=== PATIENT | male | born 1960 | race Caucasian/White ===

== ENCOUNTER 2017-05-05 21:44 | Inpatient (IN) | payer MEDICARE, OTHER ==
[~2017-05-05] VITALS: Ht 188 cm; Wt 120.2 kg
--- NOTE | 2017-05-05 21:55 | ED.ADGEN ---
Past History Past Medical History: COPD, Depression, Diabetes, Other Past Surgical History: Other Adult General Chief Complaint Chief Complaint " I just want to ... just want to go see the Lord.. " " I was talking to [facility] on the phone.. and I guess they called the [facility] HPI HPI Patient is a 56 year old male who presents with above hx and complaints of depression with suicidal ideation. Pt. has long history of depression and alcohol abuse. Patient has previous diagnosis of posttraumatic stress disorder with cyclic depression. . Patient normally follows at CT for all his care. Patient diverted from CT transfer to [place] for evaluation. Patient denies any ingestion of excessive amount of meds or illicit drugs. Patient does not currently give a specific plan if he decides act on his suicidal impulses. Patient has been hospitalized for depression in the past, but has never attempted suicide in the past. Pt. has hx of ETOH withdrawal and DTs when he has previously stopped ETOH. Pt. states he has not had any ETOH for past week. Pt. does follow at [facility] for counseling sessions. Pt. has past Hx. of PTSD, Anxiety,and chronic pain. Pt. has no family locally and lives alone. Pt. expressed he was having recurrent thoughts of suicide and fears he would act on them. Pt. requesting transfer to [place] if they come off diversion. Review of Systems Review of Systems Patient has complaints of depression Constitutional: Denies fever or chills [] Eyes: Denies change in visual acuity, redness, or eye pain [] HENT: Denies nasal congestion or sore throat [] Respiratory: Denies cough or shortness of breath [] Cardiovascular: No additional information not addressed in HPI [] GI: Denies abdominal pain, nausea, vomiting, bloody stools or diarrhea [] : Denies dysuria or hematuria [] Musculoskeletal: Chronic back pain or joint pain []. Chronic pain Integument: Denies rash or skin lesions [] Neurologic: Denies headache, focal weakness or sensory changes [] Endocrine: Denies polyuria or polydipsia [] All other systems were reviewed and found to be within normal limits, except as documented in this note. Family History Family History Noncontributory Current Medications Current Medications Current Medications Medications (Trade) Dose Ordered Sig/[place] Start Time Stop Time Status Last Admin Dose Admin Info (Do NOT chart on this entry -- for MONITORING) 1 each PRN DAILY PRN 05/06/17 03:00 05/06/17 13:53 DC Iohexol (Omnipaque 300 Mg/ml) 75 ml 1X ONCE 05/06/17 02:45 05/06/17 02:46 DC Lorazepam (Ativan) 2 mg 1X PRN PRN 05/06/17 03:30 05/06/17 13:53 DC Magnesium Hydroxide (Milk Of Magnesia) 2,400 mg 1X ONCE 05/06/17 00:30 05/06/17 00:31 DC 05/06/17 00:30 2,400 MG Multivitamins/ Minerals 10 ml/ Folic Acid 1 mg/ Thiamine HCl 100 mg/Dextrose/ Lactated Ringer's 1,011.2 ml @ 0 mls/hr 1X ONCE 05/06/17 03:30 05/06/17 03:37 DC Multivitamins/ Minerals 10 ml/ Folic Acid 1 mg/ Thiamine HCl 100 mg/Sodium Chloride 1,011.2 ml @ 1,000 mls/ hr Q1H 05/05/17 23:00 05/05/17 23:04 DC 05/05/17 22:45 1,000 MLS/HR Ondansetron HCl (Zofran) 4 mg PRN Q4HRS PRN 05/06/17 03:30 05/06/17 13:53 DC Allergies Allergies Allergies Coded Allergies Type Severity Reaction Last Updated Verified No Known Drug Allergies 05/05/17 No Physical Exam Physical Exam Constitutional: Moderately acute emotional distress, non-toxic appearance. Pt. does not appear intoxicated. HENT: Normocephalic, atraumatic, bilateral external ears normal, oropharynx moist, no oral exudates, nose normal. [] Eyes: PERRLA, EOMI, conjunctiva normal, no discharge. [] Neck: Normal range of motion, no tenderness, supple, no stridor. [] Cardiovascular:Heart rate regular rhythm, no murmur [] Lungs & Thorax: Bilateral breath sounds equal apex with few scattered wheezes on auscultation [] Abdomen: Bowel sounds normal, soft, no tenderness, no masses, no pulsatile masses. Obese. Skin: Warm, dry, no erythema, no rash. [] Back: No tenderness, no CVA tenderness. [] Old surgery scar. Extremities: No tenderness, no cyanosis, no clubbing, ROM intact, no edema. [] Veinous stasis. Neurologic: Alert and oriented X 3, No gross motor , and sensory function deficits from baseline, no gross focal deficits noted from baseline. Does walk with limp. Sciatica complaints from straight leg lift -bilaterally. ( Chronic per pt.) No flap. DTR's + 2 patella and brachial. Psychologic: Affect flat, judgement poor insight,, mood depressed Current Patient Data Vital Signs Vital Signs Date Time Temp Pulse Resp B/P (MAP) Pulse Ox O2 Delivery O2 Flow Rate FiO2 05/05/17 21:44 79 16 97 Room Air Lab Results Laboratory Tests Test 05/05/17 00:01 05/05/17 22:10 05/06/17 00:01 Urine Collection Type Unknown Urine Color Yellow Urine Clarity Hazy Urine pH 6.0 Urine Specific Louise >=1.030 Urine Protein Neg (NEG-TRACE) Urine Glucose (UA) 250 mg/dL (NEG) Urine Ketones (Stick) Neg mg/dL (NEG) Urine Blood Neg (NEG) Urine Nitrite Neg (NEG) Urine Bilirubin Neg (NEG) Urine Urobilinogen Dipstick 0.2 mg/dL (0.2 mg/dL) Urine Leukocyte Esterase Neg (NEG) Urine RBC Occ /HPF (0-2) Urine WBC Occ /HPF (0-4) Urine Squamous Epithelial Cells Few /LPF Urine Bacteria Few /HPF (0-FEW) Urine Mucus Slight /LPF Urine Opiates Screen Neg (NEG) Urine Methadone Screen Neg (NEG) Urine Barbiturates Neg (NEG) Urine Phencyclidine Screen Neg (NEG) Urine Amphetamine/Methamphetamine Neg (NEG) Urine Benzodiazepines Screen Neg (NEG) Urine Cocaine Screen Neg (NEG) Urine Cannabinoids Screen Neg (NEG) Urine Ethyl Alcohol Neg (NEG) White Blood Count 3.5 x10^3/uL (4.0-11.0) L Red Blood Count 4.29 x10^6/uL (4.30-5.70) L Hemoglobin 14.3 g/dL (13.0-17.5) Hematocrit 41.6 % (39.0-53.0) Mean Corpuscular Volume 97 fL (79-100) Mean Corpuscular Hemoglobin 33 pg (25-35) Mean Corpuscular Hemoglobin Concent 35 g/dL (31-37) Red Cell Distribution Width 16.6 % (11.5-14.5) H Platelet Count 102 x10^3/uL (140-400) L Neutrophils (%) (Auto) 67 % (31-73) Lymphocytes (%) (Auto) 19 % (24-48) L Monocytes (%) (Auto) 12 % (0-9) H Eosinophils (%) (Auto) 1 % (0-3) Basophils (%) (Auto) 0 % (0-3) Neutrophils # (Auto) 2.4 x10^3uL (1.8-7.7) Lymphocytes # (Auto) 0.7 x10^3/uL (1.0-4.8) L Monocytes # (Auto) 0.4 x10^3/uL (0.0-1.1) Eosinophils # (Auto) 0.0 x10^3/uL (0.0-0.7) Basophils # (Auto) 0.0 x10^3/uL (0.0-0.2) Erythrocyte Sedimentation Rate 23 (0-15) H Prothrombin Time 11.9 SEC (9.4-11.4) H Prothrombin Time INR 1.2 (0.9-1.1) H PTT 26 SEC (23-33) Sodium Level 137 mmol/L (136-145) Potassium Level 3.9 mmol/L (3.5-5.1) Chloride Level 100 mmol/L (98-107) Carbon Dioxide Level 26 mmol/L (21-32) Anion Gap 11 (6-14) Blood Urea Nitrogen 16 mg/dL (8-26) Creatinine 0.8 mg/dL (0.7-1.3) Estimated GFR (Cockcroft-Gault) 99.3 Glucose Level 225 mg/dL (70-99) H Calcium Level 9.5 mg/dL (8.5-10.1) Magnesium Level 1.6 mg/dL (1.8-2.4) L Total Bilirubin 0.6 mg/dL (0.2-1.0) Direct Bilirubin 0.2 mg/dL (0.0-0.2) Aspartate Amino Transferase (AST) 32 U/L (15-37) Alanine Aminotransferase (ALT) 35 U/L (16-63) Alkaline Phosphatase 92 U/L (46-116) Total Protein 8.1 g/dL (6.4-8.2) Albumin 4.1 g/dL (3.4-5.0) Salicylates Level 0.2 mg/dL (2.8-20.0) L Salicylate Last Dose Date Unknown Salicylate Last Dose Time Unknown Acetaminophen Level < 2.0 mcg/mL (10-30) L Acetaminophen Last Dose Date Unknown Acetaminophen Last Dose Time Unknown Ethyl Alcohol Level < 10 mg/dL (0-10) Rapid Plasma Reagin Non reactive (Non Reactive) QO-Soi-M-Type Natriuretic Peptide 14 pg/mL (0-124) EKG EKG My interpretation of EKG shows sinus rhythm at 84 bpm. There is a slightly prolonged QT interval. But no findings acute STEMI of contralateral changes.[] Radiology/Procedures Radiology/Procedures Chest Xray shows[]chronic changes, some calcified cyst or mass mid sternal area. No free air under abd. CT pending at time of admission. Course & Med Decision Making Course & Med Decision Making Pertinent Labs and Imaging studies reviewed. (See chart for details) See Tele Psych. for SI evaluation by Dr. Vidal Fajardo. Pt. to be admitted 24 for possible ETOH withdrawal. Discussed presentation, testing and tx plan with Dr. Etienne. Pt. will continue be a ED hold because of lack of staffing in [facility]. Discussed presentation, testing and tx. plan with Dr. Etienne. - Admit for observation and tx of possible DT per Tele psych. Possible transfer to CT when off diversion per pt. request. [] Final Impression Final Impression 1. Suicidal ideation 2. Depression 3. History of PTSD[] 4. Chronic Back Pain 5. DM- Elevated Glucose 6. COPD Hx. 7. Lung Mass/Scar-/ Cyst- ( Hx per pt. present since 80's and followed at [place]) 8. Hx of ETOH abuse 9. Past Hx of ETOH withdrawal seizures and DT's 10.Hx of Anxiety 11.Low Magnesium levels -1.6 12. Thrombocytopenia -102 Problems: Dragon Disclaimer Dragon Disclaimer This electronic medical record was generated, in whole or in part, using a voice recognition dictation system. NAT CORREA MD May 05, 2017 21:55
[2017-05-05 22:29] LABS: BASO % 0 % (0-3); EOS % 1 % (0-3); HEMATOCRIT 41.6 % (39.0-53.0); HEMOGLOBIN 14.3 g/dL (13.0-17.5); LYMPH # 0.7 x10^3/uL (1.0-4.8); LYMPH % 19 % (24-48); MEAN CORPUSCULAR HEMOGLOBIN 33 pg (25-35); MEAN CORPUSCULAR HGB CONC 35 g/dL (31-37); MEAN CORPUSCULAR VOLUME 97 fL (79-100); MONO # 0.4 x10^3/uL (0.0-1.1); MONO % 12 % (0-9); NEUT # 2.4 x10^3uL (1.8-7.7); NEUT % 67 % (31-73); PLATELET COUNT 102 x10^3/uL (140-400); RED BLOOD COUNT 4.29 x10^6/uL (4.30-5.70); RED CELL DISTRIBUTION WIDTH 16.6 % (11.5-14.5); WHITE BLOOD COUNT 3.5 x10^3/uL (4.0-11.0)
[2017-05-05 22:45] LABS: ACETAMIN < 2.0 mcg/mL (10-30); ALBUMIN 4.1 g/dL (3.4-5.0); CALCIUM 9.5 mg/dL (8.5-10.1); CREATININE 0.8 mg/dL (0.7-1.3); DIRECT BILIRUBIN 0.2 mg/dL (0.0-0.2); ETHANOL < 10 mg/dL (0-10); GFR 99.3; MAGNESIUM 1.6 mg/dL (1.8-2.4); POTASSIUM 3.9 mmol/L (3.5-5.1); SALIC 0.2 mg/dL (2.8-20.0); TOTAL BILIRUBIN 0.6 mg/dL (0.2-1.0); TOTAL PROTEIN 8.1 g/dL (6.4-8.2)
[2017-05-05] MEDS ORDERED: MVI, ADULT NO.4 WITH VIT K 10 ML, FOLIC ACID SYRINGE for ER 1 MG, THIAMINE 100 MG in IV... IV SCH ×4 (23:00)
[2017-05-05 23:40] LABS: SEDIMENTATION RATE 23 (0-15)
[2017-05-06] MEDS ORDERED: MAGNESIUM HYDROXIDE 2,400 MG/30 ML ORAL.SUSP. PO ONE (00:30)
[2017-05-06 00:51] LABS: BILIRUBIN,URINE NEG (NEG); CLARITY,URINE HAZY; COLOR,URINE YELLOW; GLUCOSE,URINE 250 mg/dL (NEG); NITRITE,URINE NEG (NEG); RBC,URINE OCC /HPF (0-2); UROBILINOGEN,URINE 0.2 mg/dL (0.2 mg/dL); WBC,URINE OCC /HPF (0-4)
[2017-05-06 00:52] LABS: BACTERIA,URINE FEW /HPF (0-FEW); SQUAMOUS EPITHELIAL CELL,UR FEW /LPF
[2017-05-06 00:53] LABS: BARBITURATES NEG (NEG); BENZODIAZEPINES NEG (NEG); CANNABINOIDS NEG (NEG); COCAINE NEG (NEG); METHADONE NEG (NEG); OPIATES NEG (NEG); PHENCYCLIDINE NEG (NEG)
[2017-05-06 00:56] LABS: AMPHETAMINE/METHAMPHETAMINE NEG (NEG)
--- NOTE | 2017-05-06 02:37 | EKG ---
[address] [address] Test Date: 2017-05-05 Test Time: 22:24:00 Pat Name: HANSA HWANG Department: Room: Gender: M Director Of Product Development: : 1960 Requested By: NAT CORREA Order Number: [id number] Reading MD: Measurements Intervals [place] Rate: 84 P: 23 SC: 160 QRS: 39 QRSD: 94 T: 46 QT: 422 QTc: 502 Interpretive Statements SINUS ARRHYTHMIA PROLONGED QT NO SPECIFIC ECG ABNORMALITIES RI6.01 No previous ECG available for comparison
[2017-05-06] MEDS ORDERED: IOHEXOL 300 MG/ML 75 ML VIAL. IV ONE (02:45)
[2017-05-06] MEDS ORDERED: CONTRAST GIVEN MC PRN (03:00)
[2017-05-06] MEDS ORDERED: MVI, ADULT NO.4 WITH VIT K 10 ML, FOLIC ACID 1 MG, THIAMINE 100 MG in IV DEXTROSE 5%-LA... IV ONE ×4 (03:30)
[2017-05-06] MEDS ORDERED: LORazepam 1 MG TABLET PO ONE ×2 (03:30→03:45)
[2017-05-06] MEDS ORDERED: LORazepam 2 MG/ML VIAL IV PRN (03:30)
[2017-05-06] MEDS ORDERED: ONDANSETRON PF 4 MG/2 ML VIAL. IV PRN (03:30)
--- NOTE | 2017-05-06 04:50 | RAD ---
PQRS Compliance Statement: One or more of the following individualized dose reduction techniques were utilized for this examination: 1. Automated exposure control 2. Adjustment of the mA and/or kV according to patient size 3. Use of iterative reconstruction technique CT CHEST WO CONTRAST Clinical Indication: Dyspnea, hx abnormal chest xray. Pt states he has a growth on sternum Comparison: AP chest, prior day. TECHNIQUE: Helical CT imaging of the chest is performed without IV contrast. Findings: Thyroid is symmetric. Moderate bilateral gynecomastia. There are subcentimeter mediastinal lymph nodes. There is a rim calcified cyst along the pericardium the anterior mediastinum left of midline that measures 4.7 cm AP by 4.9 cm transverse by 5.7 cm craniocaudal. Great vessels are normal caliber. There is severe three-vessel coronary artery disease. Cardiac size normal. Mild mitral annular calcification. No pericardial effusion. No pleural effusion. The central airways are patent. There are peripheral reticular opacities in the bilateral lungs. Finding may be chronic. No lung consolidation. TIPS is partially seen in the liver. Vascular coils are seen in the central upper abdomen, incompletely imaged. Spleen may be enlarged but is incompletely imaged. No compression fracture in the thoracic spine. IMPRESSION: 1. Rim calcified cyst along the pericardium in the left anterior mediastinum. Differential considerations include pericardial cyst, thymic cyst, or teratoma. Suggest comparison to prior imaging to document stability. If not available suggest CT follow-up in 6-12 months. 2. There are peripheral reticular opacities in the bilateral lungs. Chronic scarring and/or atelectasis are considerations. 3. Severe three-vessel coronary artery disease. 4. TIPS partially seen in the liver. Spleen may be enlarged. Electronically signed by: Lee Whitley MD (05/06/2017 4:46 AM) [facility]
--- NOTE | 2017-05-06 06:48 | NUR ---
CBC and BMP drawn and taken to lab. No difficulties encountered. Patient cooperative throughout the process.
[2017-05-06 06:56] LABS: ACETAMIN < 2 mcg/mL (10-30); SALIC < 0.2 mg/dL (2.8-20.0)
[2017-05-06 07:09] VITALS: BP 110/71
[2017-05-06] MEDS: IPRATRPIUM/ALBUTEROL 0.5/2.5MG 3 ML NEBU. NEB SCH ×2 (08:00→12:00)
[2017-05-06 08:25] VITALS: BP 111/76
--- NOTE | 2017-05-06 08:27 | RAD ---
EXAM: Chest one view. HISTORY: Dyspnea. COMPARISON: CT 05/06/2017. FINDINGS: A frontal view of the chest is obtained. A rim calcification projects over the left heart border and measures 9 x 5 cm. This corresponds with a rim calcified pericardial cyst on CT. There are mild interstitial opacities in the bases consistent with interstitial lung disease on CT. There is no pneumothorax or pleural effusion. The heart is not enlarged. IMPRESSION: 1. 9 x 5 cm rim calcification along the left heart border, corresponding with a calcified pericardial cystic collection on CT. Refer to CT for more information and recommendations. 2. Interstitial opacities consistent with mild interstitial lung disease.
[2017-05-06] MEDS ORDERED: MVI, ADULT NO.4 WITH VIT K 10 ML, FOLIC ACID 1 MG, THIAMINE 100 MG in IV DEXTROSE 5%-LA... IV SCH ×4 (09:00)
[2017-05-06] MEDS ORDERED: LORazepam 1 MG TABLET PO SCH (09:00)
--- NOTE | 2017-05-06 09:03 | NUR ---
The patient, HANSA MILIAN, 56 y/o, M admitted by KYE MENSAH MD, was given written information regarding hospital policies, unit procedures and contact persons. Valuables were checked and admission assessment performed. Call light in place. Eating breakfast at this time. Will CTM.
[2017-05-06 12:04] VITALS: BP 127/80
--- NOTE | 2017-05-06 13:28 | NUR ---
Pt discharged from the hospital, IV maintained with banana bag infusing. Called report to Camilla AMAYA pt off unit accompanied by [facility].
--- NOTE | 2017-05-06 14:29 | SSS ---
ADMIT DATE: 05/06/2017 Stay was greater than 8 hours and less than 24 hours. Care was given by Dr. Sidney Kurtz. REASON FOR ADMISSION: A 56-year-old male who stated that for the last 2 days, he has been very depressed, cannot even get out of bed, did want to do anything, just wanted to go see the Lord. He did talk to a Crisis Center on the phone and they called the police. They were en route to the [facility] and he was diverted to [facility] for evaluation. At the time in the Emergency Room, he denied ingesting any medications or illicit drugs. He has been nonspecific about his alcohol intake, but does have history of alcohol abuse and withdrawal. He has told the Emergency Room physician, he had not had a drink in a week, but told me it was 3 weeks. He is quite anxious and agitated while we were conversing. PAST MEDICAL HISTORY: Anxiety, chronic pain, posttraumatic stress disorder, depression, hypertension, insomnia, tobacco use, COPD, diabetes. MEDICATIONS: We were unable to obtain as the list was lost and [facility] did not send prior to his transfer. ALLERGIES: None. SOCIAL HISTORY: The patient lives alone. He has his own apartment. He is on SSI and does not have a job. He does try to walk around some. 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 REVIEW OF SYSTEMS: Positive for occasional shortness of breath, insomnia, depression, anxiety, and chronic pain. OBJECTIVE: VITAL SIGNS: Blood pressure 116/76, pulse 96, respirations 18, pulse ox 96% on room air, temperature 97.5, height 74 inches, weight 265 pounds. GENERAL: A 56-year-old who looks his stated age. Mood is depressed. The patient did not make eye contact the entire time that we spoke. He just looked down. His overall emotional state is somewhat agitated, appears twitchy. HEENT: Pupils were equal, round, react to light. Extraocular muscles were intact. Nose patent. Throat clear. NECK: Supple, without adenopathy. LUNGS: Clear to auscultation. CARDIOVASCULAR: Regular rhythm and rate with a 2/6 systolic murmur. ABDOMEN: Soft, nontender. EXTREMITIES: Without edema. NEUROLOGIC: Mood is agitated. LABORATORY DATA: White blood cell count 3.5, hemoglobin 14.3, hematocrit 41.6, platelet count 102,000. Chemistry: Glucose is fluctuating, 304, 158, and 225. Magnesium is 1.6. IMAGING: He had a chest CT, it shows severe 3-vessel coronary artery disease, calcified cyst along the pericardium, questionable significance. ASSESSMENT: 1. Major depressive disorder 2. Alcoholism. Unknown last drink of alcohol, maybe going into the alcohol withdrawal. His alcohol level in the Emergency Room was zero. 3. Diabetes with hyperglycemia. 4. Mild hypomagnesemia has been replaced. 5. Insomnia. 6. Obesity. 7. Severe 3-vessel coronary artery disease. I do not know if this is known to the [facility]. 8. Tobacco use. PLAN: Discussed with Lolly Alves, nurse practitioner, at [facility]. He will be admitted there to the medical floor, did make sure that staff was informed of the severe 3-vessel coronary artery disease on his CAT scan and platelet count. SIDNEY KURTZ DO DR: CARMELO/aneesh JOB#: [id number] / [id number]
== END 2017-05-06 13:52 | disposition short-term general hospital (02) | DRG 897 ==
LOC: ER 21:44 → 1 SOUTH 05-06 03:30
PROVIDERS: ADMIT Family Medicine; ATTEND Family Medicine
DX: F10.239 Alcohol dependence with withdrawal, unspecified (principal); R45.851 Suicidal ideations; D69.6 Thrombocytopenia, unspecified; E11.65 Type 2 diabetes mellitus with hyperglycemia; E83.42 Hypomagnesemia; Y90.0 Blood alcohol level of less than 20 mg/100 ml; E66.9 Obesity, unspecified; F32.9 Major depressive disorder, single episode, unspecified; F43.10 Post-traumatic stress disorder, unspecified; G47.00 Insomnia, unspecified; G89.29 Other chronic pain; Z60.2 Problems related to living alone; I10 Essential (primary) hypertension; I25.10 Atherosclerotic heart disease of native coronary artery without angina pectoris; J44.9 Chronic obstructive pulmonary disease, unspecified; Z72.0 Tobacco use; M54.9 Dorsalgia, unspecified; F41.9 Anxiety disorder, unspecified
CPT/HCPCS: 36415; 71045; 71250; 80048; 80076; 80307; 81001; 82947; 83735; 83880; 85025; 85610; 85651; 85730; 86593; 93005; 96365; 96366; G0480; 99285-25; G0479; J7030

== ENCOUNTER → 2017-08-16 | Outpatient (CLI) | payer OTHER | END | disposition home or self-care (01) | LOC: SURG 12:58 | PROVIDERS: ATTEND Anesthesiology | DX: M17.12 Unilateral primary osteoarthritis, left knee (principal); G89.29 Other chronic pain; I10 Essential (primary) hypertension; E11.65 Type 2 diabetes mellitus with hyperglycemia; E66.9 Obesity, unspecified | CPT/HCPCS: 99214 ==

== ENCOUNTER → 2017-08-16 | Outpatient (CLI) | payer OTHER ==
--- NOTE | 2017-08-16 14:34 | RAD ---
EXAM: Left knee, 2 views. HISTORY: Pain. COMPARISON: None. FINDINGS: 2 views of the left knee are obtained. There is lateral compartment predominant joint space narrowing and subchondral sclerosis with suspected subchondral cyst formation. There is mild tricompartment spurring. There is a moderate to large joint effusion. IMPRESSION: 1. Mild to moderate lateral compartment predominant tricompartmental osteoarthritis of the left knee. 2. Moderate to large left knee effusion. Electronically signed by: Shahnaz Suarez MD (08/16/2017 2:29 PM) [facility]
== END | disposition home or self-care (01) ==
LOC: DXRAD 14:17
PROVIDERS: ATTEND Anesthesiology
DX: M17.12 Unilateral primary osteoarthritis, left knee (principal); M25.462 Effusion, left knee
CPT/HCPCS: 73560